=== PATIENT | female | born 1990 | race Caucasian/White ===

== ENCOUNTER 2019-10-10 20:54 | Emergency (ER) | payer BC, OTHER ==
[~2019-10-10] VITALS: Ht 165.1 cm; Wt 54.4 kg
[2019-10-10 21:10] VITALS: BP 125/82
--- NOTE | 2019-10-10 21:10 | NUR ---
ED Nurse Note: Patient walked into ER from home d/t fentanyl withdrawal last use was wednesday (2 days ago). Patient aao x 4 and ambulatory. Patient c/o generalized body pain 04/01. Patient stable upon assessment.
--- NOTE | 2019-10-10 21:39 | NUR ---
ED Nurse Note: ERMD at bedside.
[2019-10-10] MEDS ORDERED: LORazepam Inj 2mg/ml 1ml IV ONE ×2 (21:45→22:45)
--- NOTE | 2019-10-10 21:49 | Emergency Room Report ---
History of Present Illness General Chief Complaint: General Complaint Source: Patient Present Illness HPI Is a 29-year-old female with a history of fentanyl abuse. She says she use a very high dose every day. She started in a sober living program and started on Suboxone yesterday. Now she came in complaining of severe withdrawal. Very achy and painful. Also felt very anxious. She denies suicidal thought homicidal thought. She said that seeing staff recommend that she get IV fluid and Ativan. She denies any other drug use. Allergies: Coded Allergies: AMOXICILLIN (Verified Allergy, Unknown, 03/18/16) Patient History Past Medical History: see triage record, old chart reviewed Past Surgical History: none Pertinent Family History: none Social History: Denies: smoking Last Menstrual Period: 10/07/19 Now: No Immunizations: other Reviewed Nursing Documentation: PMH: Agreed; PSxH: Agreed Nursing Documentation-PMH Past Medical History: No History, Except For Review of Systems Eye: Denies: eye pain, blurred vision ENT: Denies: ear pain, nose congestion, throat swelling Respiratory: Denies: cough, shortness of breath Cardiovascular: Denies: chest pain, palpitations Gastrointestinal: Denies: abdominal pain, diarrhea, nausea, vomiting Musculoskeletal: Denies: back pain, joint pain Skin: Denies: rash Psychiatric: Reports: anxiety Neurological: Denies: headache, numbness Endocrine: Denies: increased thirst, increased urine Hematologic/Lymphatic: Denies: easy bruising All Other Systems: negative except mentioned in HPI Physical Exam Vital Signs Date Time Temp Pulse Resp B/P (MAP) Pulse Ox O2 Delivery O2 Flow Rate FiO2 10/10/19 21:05 98.2 88 24 120/81 (94) 98 Room Air Vitals normal Sp02 EP Interpretation: reviewed, normal General Appearance: well appearing, no apparent distress, alert Head: normocephalic, atraumatic Eyes: bilateral eye PERRL, bilateral eye EOMI ENT: hearing grossly normal, normal pharynx Neck: full range of motion, supple, no meningismus Respiratory: chest non-tender, lungs clear, normal breath sounds Cardiovascular #1: regular rate, rhythm, no murmur Gastrointestinal: normal bowel sounds, non tender, no mass, no organomegaly, no bruit, non-distended Musculoskeletal: back normal, normal range of motion, gait/station normal Psychiatric: anxious Medical Decision Making Diagnostic Impression: Primary Impression: Opiate withdrawal ER Course Patient presents with opiate withdrawal and anxiety. No suicidal thought homicidal thought. I confirmed with nursing staff at the sober [facility] and they said that she can take Ativan. No criteria 5150. She denies suicidal or homicidal. Not a danger to herself. Last Vital Signs Date Time Temp Pulse Resp B/P (MAP) Pulse Ox O2 Delivery O2 Flow Rate FiO2 10/10/19 21:10 85 22 Room Air 10/10/19 21:10 98.2 125/82 98 Status: improved Disposition: HOME, SELF-CARE Condition: Stable Additional Instructions: Continue with rehab. Follow-up with your doctor in 1 to 2 days. Return if symptoms worsen. Long Benitez MD Oct 10, 2019 21:49
[2019-10-11 00:05] VITALS: BP 128/89
--- NOTE | 2019-10-11 00:05 | NUR ---
ER DISCHARGE NOTE: Patient is cleared to be discharged per ERMD, pt is aox4, on room air, with stable vital signs. pt was given dc instructions, pt was able to verbalize understanding, pt id band removed. pt is able to ambulate with steady gait. pt took all belongings. pt stable upon discharge.
== END 2019-10-11 00:05 | disposition home or self-care (01) ==
LOC: EMR 22:00
DX: F11.23 Opioid dependence with withdrawal (principal); Z88.1 Allergy status to other antibiotic agents
CPT/HCPCS: 96361; 96374; 96376; J7030; Z7502; 99284

== ENCOUNTER 2019-11-14 10:55 | Emergency (ER) | payer OTHER ==
[~2019-11-14] VITALS: Ht 165.1 cm; Wt 56.7 kg
[2019-11-14 10:55] VITALS: BP 123/83
--- NOTE | 2019-11-14 10:55 | NUR ---
ED Nurse Note: arrives from home with c/o ears feel like muffled hearing and aching. no cough no fever a/ox4 anxious affect.
--- NOTE | 2019-11-14 12:25 | NUR ---
ED Nurse Note: flu swab, and urine spesimen were taken, sent down
[2019-11-14 12:51] LABS: APPEARANCE,URINE SLIGHTLY CLOUDY; BILIRUBIN, URINE NEGATIVE (NEGATIVE); COLOR,URINE PALE YELLOW; GLUCOSE, URINE (UA) NEGATIVE (NEGATIVE); KETONES,URINE NEGATIVE (NEGATIVE); LEUKOCYTE ESTERASE ,URINE 3+ (NEGATIVE); NITRITE,URINE POSITIVE (NEGATIVE); PH,URINE 6.5 (4.5-8.0); PROTEIN,URINE NEGATIVE (NEGATIVE); UROBILINOGEN,URINE NORMAL MG/DL (0.0-1.0)
[2019-11-14] MEDS ORDERED: CIPROFLOXACIN500 M2 ORAL (13:54)
--- NOTE | 2019-11-14 13:54 | Emergency Room Report ---
History of Present Illness General Chief Complaint: Earache Source: Patient Present Illness HPI This patient states that for the past week she has had congestion and feeling of fullness in both of her ears. She states she is also had a sore throat. She is concerned because she lives in a rehab facility and it is dirty there. She is concerned about coronavirus. She denies fever or chills. She denies nausea or vomiting. She states she also is concerned she could be and may have a urinary tract infection. He denies abdominal pain. She denies chest pain or shortness of breath. She has no other complaints. COVID-19 risk:Contact w/high r: No COVID-19 risk:Travel to affect: No Has patient experienced ced[place]: No Allergies: Coded Allergies: AMOXICILLIN (Verified Allergy, Unknown, 03/18/16) Patient History Past Medical History: see triage record, asthma, other - HEP C Social History: Denies: smoking, alcohol use, drug use Last Menstrual Period: last month Now: No Reviewed Nursing Documentation: PMH: Agreed; PSxH: Agreed Nursing Documentation-PMH Past Medical History: No History, Except For History Of Psychiatric Problem: Yes - substance abuse, anxiety Review of Systems All Other Systems: negative except mentioned in HPI Physical Exam Vital Signs Date Time Temp Pulse Resp B/P (MAP) Pulse Ox O2 Delivery O2 Flow Rate FiO2 11/14/19 10:49 97.9 87 20 123/83 (96) 100 Room Air Sp02 EP Interpretation: reviewed, normal General Appearance: no apparent distress, alert, GCS 15, non-toxic Head: normocephalic, atraumatic Eyes: bilateral eye normal inspection ENT: normal ENT inspection, hearing grossly normal, normal pharynx, no angioedema, normal voice, TMs + canals normal Neck: full range of motion, supple/symm/no masses Respiratory: chest non-tender, lungs clear, normal breath sounds, no respiratory distress, no retraction, no accessory muscle use, speaking full sentences Cardiovascular #1: regular rate, rhythm, no edema Rectal: deferred Musculoskeletal: back normal, normal range of motion, gait/station normal, non- tender Neurologic: alert, motor strength/tone normal, oriented x3, sensory intact, responsive, speech normal Psychiatric: judgement/insight normal, memory normal, mood/affect normal, no suicidal/homicidal ideation Skin: no rash, normal color Medical Decision Making Diagnostic Impression: Primary Impression: URI (upper respiratory infection) Additional Impression: UTI (urinary tract infection) ER Course This patient has a clinical presentation with upper respiratory tract infection. She also has a contaminated urinalysis but describes symptoms consistent with a urinary tract infection. I will go ahead and treat this patient presumptively for UTI. The evaluation was very reassuring with a normal lung exam, no respiratory distress, normal pulse oximetry. I am not concerned for pneumonia in this patient. This is most likely viral and will not need antibiotic therapy. The patient currently presents during pandemic of novel COVID-19. I educated the patient that at this time this is a [facility] and is unable to support COVID-19 screening and people that are otherwise healthy and well-appearing without evidence of decompensation. I did educate the patient that he could have any number of viral infections to include influenza, rhinovirus or COVID-19. The patient was educated that he should self-quarantine for 14 days as a precaution and not come into contact with any one that is elderly or has multiple chronic medical conditions. The patient was also educated of the signs and symptoms that indicate worsening of a respiratory virus and would require return to the emergency department which includes worsening symptoms and difficulty breathing. At this time, I did not identify an emergency medical condition or condition that requires admission to the hospital. The patient is given close return precautions and follow-up instructions. Laboratory Tests Test 11/14/19 12:26 Urine Color Pale yellow Urine Appearance Slightly cloudy Urine pH 6.5 (4.5-8.0) Urine Specific Bath 1.015 (1.005-1.035) Urine Protein Negative (NEGATIVE) Urine Glucose (UA) Negative (NEGATIVE) Urine Ketones Negative (NEGATIVE) Urine Blood 2+ (NEGATIVE) H Urine Nitrite Positive (NEGATIVE) H Urine Bilirubin Negative (NEGATIVE) Urine Urobilinogen Normal MG/DL (0.0-1.0) Urine Leukocyte Esterase 3+ (NEGATIVE) H Urine RBC 10-15 /HPF (0 - 2) H Urine WBC Tntc /HPF (0 - 2) H Urine Squamous Epithelial Cells Many /LPF (NONE/OCC) H Urine Bacteria Many /HPF (NONE) H Urine HCG, Qualitative Negative (NEGATIVE) Microbiology Date/Time Source Procedure Growth Status 11/14/19 00:00 Nasal Nares - Final Complete 11/14/19 00:00 Nasal Nares - Final Complete Last Vital Signs Date Time Temp Pulse Resp B/P (MAP) Pulse Ox O2 Delivery O2 Flow Rate FiO2 11/14/19 10:55 97.9 87 20 123/83 100 Room Air Status: improved Disposition: HOME, SELF-CARE Condition: Improved Scripts No Active Prescriptions or Reported Meds Referrals: Haydee HOWARD,REFERRING (PCP) Diann Vasquez DO Nov 14, 2019 13:54
--- NOTE | 2019-11-14 14:08 | NUR ---
ED Nurse Note: pt apparently eloped after md fowler phone message left for pt to call back for aci's/script. aware leaving without aci
[2019-11-14 14:11] VITALS: BP 123/83
--- NOTE | 2019-11-14 18:09 | NUR ---
ED Nurse Note:pt returning to pharmacy picking tech dc aci and aware prescription is at pharmacy for her to start taking. pt agrees to plan
== END 2019-11-14 14:13 | disposition home or self-care (01) ==
LOC: EMR 11:21
DX: J06.9 Acute upper respiratory infection, unspecified (principal); N39.0 Urinary tract infection, site not specified; Z88.0 Allergy status to penicillin; Z86.19 Personal history of other infectious and parasitic diseases; F41.9 Anxiety disorder, unspecified
CPT/HCPCS: 81003; 81025; 86710; 87086; 87181; Z7502; 99283